=== PATIENT | male | born 1950 | race Caucasian/White ===

== ENCOUNTER 2019-12-19 13:54 | Outpatient (REF) | payer OTHER, SELFPAY ==
[2019-12-19 14:24] LABS: Microalbum/Creatinine Ratio Ur 27.5 ug/mg cr
== END 2019-12-19 13:55 | disposition home or self-care (01) ==
LOC: HO.LNP 13:54
PROVIDERS: Visit Provider Hospitalist
DX: I10 Essential (primary) hypertension (principal)
CPT/HCPCS: 82043

== ENCOUNTER 2019-12-31 17:57 | Outpatient (REF) | payer OTHER, SELFPAY | END 2019-12-31 17:58 | disposition home or self-care (01) | LOC: HO.LAB 17:57 | PROVIDERS: Visit Provider Internal Medicine | DX: Z20.828 Contact with and (suspected) exposure to other viral communicable diseases (principal) | CPT/HCPCS: C9803; U0003 ==

== ENCOUNTER 2020-04-10 10:12 | Outpatient (REF) | payer OTHER, SELFPAY ==
[2020-04-10 14:29] LABS: Anion Gap 11 (12-20); Blood Urea Nitrogen 8 mg/dL (9-16); Calcium 8.9 mg/dL (8.4-10.2); Carbon Dioxide 27 mmol/L (22-29); Chloride 103 mmol/L (96-108); Estimated Glomerular Filt Rate > 60; Glucose Fasting 248 mg/dL (60-99); Magnesium 1.9 mg/dL (1.6-2.6); Phosphorus 3.1 mg/dL (2.7-4.5); Sodium 137 mmol/L (135-145)
[2020-04-10 14:50] LABS: TSH reflex Free T4 1.52 uIU/mL (0.32-4.0)
== END 2020-04-10 10:13 | disposition home or self-care (01) ==
LOC: HO.WFDLDS 10:12
PROVIDERS: Visit Provider Hospitalist
DX: Z00.00 Encounter for general adult medical examination without abnormal findings (principal); K44.9 Diaphragmatic hernia without obstruction or gangrene
CPT/HCPCS: 36415; 80048; 83735; 84100; 84443

== ENCOUNTER 2020-04-10 13:10 | Outpatient (REF) | payer OTHER, SELFPAY | END 2020-04-10 13:11 | disposition home or self-care (01) | LOC: HO.LAB 13:10 | PROVIDERS: PCP Hospitalist; Visit Provider Internal Medicine | DX: Z20.822 Contact with and (suspected) exposure to COVID-19 (principal) | CPT/HCPCS: 36415; C9803; U0003; U0005 ==

== ENCOUNTER 2020-04-30 11:06 | Outpatient (REF) | payer OTHER, SELFPAY | END 2020-04-30 11:07 | disposition home or self-care (01) | LOC: HO.LAB 11:06 | PROVIDERS: Visit Provider Internal Medicine | DX: Z20.822 Contact with and (suspected) exposure to COVID-19 (principal) | CPT/HCPCS: 36415; C9803; U0003; U0005 ==

== ENCOUNTER 2020-06-09 13:08 | Outpatient (REF) | payer OTHER, SELFPAY | END 2020-06-09 13:09 | disposition home or self-care (01) | LOC: HO.LAB 13:08 | PROVIDERS: Visit Provider Internal Medicine | DX: Z20.822 Contact with and (suspected) exposure to COVID-19 (principal) | CPT/HCPCS: C9803; U0003; U0005 ==

== ENCOUNTER 2021-02-10 10:30 | Outpatient (REF) | payer OTHER, SELFPAY | END 2021-02-10 10:31 | disposition home or self-care (01) | LOC: HO.LAB 10:30 | PROVIDERS: Visit Provider Internal Medicine | DX: Z20.822 Contact with and (suspected) exposure to COVID-19 (principal) | CPT/HCPCS: C9803; U0003; U0005 ==

== ENCOUNTER 2021-05-29 10:46 | Outpatient (REF) | payer OTHER, SELFPAY ==
[2021-05-29 11:20] LABS: COVID-19 Test Negative (Negative); IDNOW Serial# 08D9AD1C
== END 2021-05-29 10:47 | disposition home or self-care (01) ==
LOC: HO.LAB 10:46
PROVIDERS: Visit Provider Internal Medicine
DX: Z20.822 Contact with and (suspected) exposure to COVID-19 (principal)
CPT/HCPCS: 87635; C9803

== ENCOUNTER 2024-10-04 14:46 | Outpatient (AMB) | payer OTHER, SELFPAY ==
--- NOTE | 2024-10-04 14:50 | A.OFFVIS_ITS ---
Intake Visit Reasons: 2 Months/ Migrane PN Breastfeeding Program Coordinator Required: Yes Breastfeeding Program Coordinator Name: #[id number] Allergies No Known Allergies Allergy (Verified 10/04/24 14:54) Medication List - Last Reconciled 10/04/24 by Heena Souza CNP buspirone 10 mg PO BID gklltqqzyj-wczevypazjngi-ylbv 50-325-40 mg 1 - 2 tabs PO DAILY PRN cetirizine 10 mg PO DAILY clonazepam 0.5 mg PO DAILY PRN dulaglutide mg subcut empagliflozin (Jardiance) 25 mg PO DAILY esomeprazole magnesium 40 mg PO DAILY insulin aspart U-100 15 units subcut TID insulin degludec 50 units subcut BEDTIME lisinopril 2.5 mg PO DAILY melatonin 9 mg PO BEDTIME meloxicam 15 mg PO DAILY PRN 3 months mirtazapine 30 mg PO BEDTIME prazosin 1 mg PO BEDTIME rosuvastatin 20 mg PO DAILY sertraline 50 mg PO DAILY HPI Comments Details: 73-year-old man with remote h/o heavy alcohol use, underlying diagnosis of bipolar disorder, CAD s/p CABG, and diabetes who was here with complaints of headache and unsteadiness. Evaluation revealed cerebellar atrophy and moderately severe axonal SM PN. He was doing okay. Headaches were infrequent, happening about once a month. Butalbital as needed helped. He had some burning-type pain in legs, mostly at night. Sleep was okay with medications. Walking with cane, no further falls. He had arthritis pains in shoulders and hands, and was using lidocaine patches OTC which helped. He was asking if these could be prescribed due to cost. His blood sugar in the office was 169. [facility] Medical History (Updated 10/04/24 @ 15:06 by Heena Souza CNP) Multifactorial gait disorder Peripheral neuropathy Migraine Hypertension Surgical History History of circumcision History of vasectomy Family History Father No problems noted. Mother Diabetes Hypertension CVD (cardiovascular disease) Brother Diabetes Maternal Aunt Stomach cancer Review of Systems Const Denies chills, Denies daytime sleepiness, Denies difficulty sleeping, Denies fatigue, Denies fever(s), Denies frequent falls, Reports headache(s), Denies increased appetite, Denies poor appetite, Denies snoring, Denies weakness, Denies weight gain and Denies weight loss Eyes Denies loss of vision ENT Denies vertigo, Denies dizziness and Reports headache(s) Card Denies chest pain at rest, Denies chest pain with activity, Denies syncope, Denies leg edema and Denies palpitations Resp Denies snoring GI Denies constipation, Denies heartburn, Denies diarrhea and Denies nausea Denies urinary frequency, Denies urinary incontinence and Denies urinary urgency Musc Denies abnormal gait, Reports numbness and Reports tingling Skin/Breast Denies dry skin and Denies rash Neuro Denies abnormal gait, Denies vertigo, Denies dizziness, Denies syncope, Denies frequent falls, Reports headache(s), Denies lack of coordination, Denies loss of vision, Denies memory loss, Reports numbness, Denies restless legs, Denies seizure-like activity, Reports tingling, Denies paresthesias, Denies tremor(s) and Denies weakness Psych Denies anxiety, Denies depression, Denies auditory hallucinations, Denies memory loss, Denies visual hallucinations and Denies suicidal ideation Endo Denies fatigue and Denies palpitations Physical Exam Const Other: General Appearance:? normal, in no acute distress. Skin:? no rashes, no significant birthmarks. Heart:? S1, S2 normal, no murmurs. Lungs:? clear anteriorly and posteriorly. Extremities:? no edema. Psych:? alert, oriented, cognitive function intact, cooperative with exam. Neuro Other: Mental Status:?Normal attention, orientation, memory and affect.? Cranial Nerves:?Pupils are equal, round and reactive to light. External occular muscles are intact. Visual ace are full. Face is symmetrical. Facial sensations are normal. Tongue is midline. Palate elevates symmetrically. Shoulder shrugging is normal. Hearing to bedside conversation is normal. Motor Examination: DTRs 2-3 with flexor plantars. Sensory Exam:?....? Coordination:?No ataxia,?no titubation.? Gait Exam: With cane. Cerebellar Signs:?Ytgell-yd-afvs with mild b/l tremor. Extrapyramidal System:?No tremor, rigidity with normal facial expressions.? Pronator Drift:?Not present.? Involuntary Movements:?No tremors seen.? Speech:?Normal.? Results Reviewed Results Reviewed: NCV/EMG (in office) Moderately severe motor more than sensory peripheral neuropathy with features of demyelination and axonal loss. 01/03/24. CT brain WO at [facility] in 2021: Mild cerebellar and cerebral atrophy Assessment & Plan Assessment & Plan (1) Migraine: Code(s): G43.909 - Migraine, unspecified, not intractable, without status migrainosus Category: Medical Qualifiers: Migraine type: unspecified Status migrainosus presence: without status migrainosus Intractability: not intractable Qualified Code(s): G43.909 - Migraine, unspecified, not intractable, without status migrainosus Plan: Continue vjbclmsehb-XECI-lxjs 50-325-40mg 1-2 tablets as needed for headache #10 for 30 days. (2) Peripheral neuropathy: Code(s): G62.9 - Polyneuropathy, unspecified Category: Medical Qualifiers: Peripheral neuropathy type: polyneuropathy, unspecified Qualified Code(s): G62.9 - Polyneuropathy, unspecified Plan: Start gabapentin 300mg 1 tablet at bedtime, use/side effects. (3) Multifactorial gait disorder: Code(s): R26.89 - Other abnormalities of gait and mobility Category: Medical Plan: Use cane at all times. (4) Osteoarthritis: Code(s): M19.90 - Unspecified osteoarthritis, unspecified site Category: Medical Qualifiers: Osteoarthritis location: multiple joints Osteoarthritis type: unspecified Qualified Code(s): M15.9 - Polyosteoarthritis, unspecified Plan: Script for lidocaine patches sent, will see if covered by insurance. Medications: New gabapentin 300 mg PO BEDTIME 30 days 30 caps 2RF lidocaine 4% 1 patch topical DAILY PRN 30 ea 2RF pain 30 days lidocaine 4% 1 patch topical DAILY 30 days PRN 30 ea 2RF pain crbcpzjxmz-eehhsxczngxlm-mrbs 50-325-40 mg 1 - 2 tabs PO DAILY PRN 10 tabs 2RF headache 30 days gabapentin 300 mg PO BEDTIME 30 caps 2RF 30 days Coding Level of Care Code Est Pt Level 4 (85833) Diagnoses Migraine without status migrainosus, not intractable, unspecified migraine type G43.909 Migraine type: unspecified Status migrainosus presence: without status migrainosus Intractability: not intractable Peripheral polyneuropathy G62.9 Peripheral neuropathy type: polyneuropathy, unspecified Multifactorial gait disorder R26.89 Osteoarthritis of multiple joints, unspecified osteoarthritis type M15.9 Osteoarthritis location: multiple joints Osteoarthritis type: unspecified
--- OUTSIDE RECORDS SUMMARY | 2024-10-04 15:25 | XMS_ITS | Clinical Summary ---
Author Organization [facility] Address [address] [place] [address] Care Team Providers Care Medical Coding Specialist Name Role Phone Lucho Eric MD Primary Care Provider [phone] Allergies No known active allergies Medications Medication Sig Dispensed Refills Start Date End Date Status aspirin EC 81 MG tablet Take 81 mg by mouth. 0 07/08/2016 Active atorvastatin (LIPITOR) tablet 40 mg Take 40 mg by mouth. 0 07/08/2016 Active citalopram (CELEXA) 20 MG tablet Take 20 mg by mouth. 0 07/08/2016 Active clonazePAM (KLONOPIN) 1 MG tablet Take 1 mg by mouth. 0 09/15/2015 Active insulin aspart (NovoLOG FLEXPEN) injection 100 units/mL Inject SQ w/ Meals TID 5-35 units up to 105 units daily 0 04/30/2016 Active Insulin Degludec 200 UNIT/ML SOPN Inject 60 Units under the skin. 0 04/30/2016 Active lamoTRIgine (LAMICTAL) 25 MG tablet Take 25 mg by mouth. 0 07/08/2016 Active meloxicam (MOBIC) 15 MG tablet Take 15 mg by mouth. 0 07/08/2016 Active omeprazole (PRILOSEC) 20 MG capsule Take 20 mg by mouth. 0 07/08/2016 Active sildenafil (VIAGRA) 100 MG tablet Take 100 mg by mouth. 0 07/08/2016 Active gabapentin (NEURONTIN) 300 MG capsule Take 300 mg by mouth 3 (three) times a day. 0 Active prazosin (MINIPRESS) 1 MG capsule Take 1 mg by mouth every night at bedtime. 0 Active rosuvastatin (CRESTOR) tablet 40 mg Take 40 mg by mouth daily. 0 Active esomeprazole (NexIUM) 40 MG capsule Take 40 mg by mouth 2 (two) times a day. 0 Active metFORMIN (GLUCOPHAGE) tablet 500 mg Take 1,000 mg by mouth 2 (two) times a day with meals. 0 Active cyanocobalamin (VITAMIN B12) 1000 MCG/ML injection Inject 1,000 mcg into the muscle every 30 (thirty) days. 0 Active empagliflozin (JARDIANCE) tablet 10 mg Take 10 mg by mouth daily. 0 Active dulaglutide (TRULICITY) 3 MG/0.5ML subcutaneous pen-injector Inject 3 mg under the skin every 7 days. 0 Active lisinopril (PRINIVIL,ZESTRIL) tablet 2.5 mg Take 2.5 mg by mouth daily. 0 Active Active Problems Problem Noted Date Diagnosed Date Unintentional weight loss 07/20/2021 Gastroparesis diabeticorum 07/07/2021 Diabetes mellitus type 2, wi th complication, on fpc insulin pump 12/11/2018 Anxiety 08/02/2017 Bipolar 1 disorder 08/02/2017 Multilevel degenerative disc disease 08/02/2017 Overview: MRI Lumbar and cervical spine 12/07/11 in [place] Diffuse Chronic DJD and early DDD changes HTN (hypertension) 06/29/2017 Hyperlipidemia 05/30/2014 Obstructive sleep apnea 05/30/2014 Overview: [facility] Polysomnogram: Date 09/06/2017; Wt 174# SE 63%; SM 67%; REM 14%; RDI 31 (AHI 31), REM (RDI 25 - AHI 25), Central apneas 2; Obstructive apneas 11; Mixed apneas 2; hypopneas 157; RERAs 0; average oxygen saturation 94% (lowest 86% - without saturations <88% for 5% or more of study); PLMs 57. - Obstructive Sleep Apnea - severe overall and moderate in REM; mostly hypopneas; without sleep related hypoventilation by 2018 polysomnogram. GERD (gastroesophageal reflux disease) Family History Medical History Relation Name Comments Diabetes Mother Heart disease Mother Stomach cancer Paternal Aunt Relation Name Status Comments Mother Paternal Aunt Social History Tobacco Use Types Packs/Day Years Used Date Smoking Tobacco: Never Smokeless Tobacco: Never Sex and Gender Information Value Date Recorded Sex Assigned at Not on file Gender Identity Not on file Sexual Orientation Not on file Job Start Date Occupation Industry Not on file Not on file Not on file Last Filed Vital Signs Vital Sign Reading Time Taken Comments Blood Pressure 156/78 07/07/2021 1:06 PM EDT Pulse 73 07/07/2021 1:06 PM EDT Temperature 36.4 C (97.5 F) 07/07/2021 1:06 PM EDT Respiratory Rate - - Oxygen Saturation 100% 07/07/2021 1:06 PM EDT Inhaled Oxygen Concentration - - Weight 69.4 kg (153 lb) 07/07/2021 1:06 PM EDT Height 165.1 cm (5' 5 ) 07/07/2021 1:06 PM EDT Body Mass Index 25.46 07/07/2021 1:06 PM EDT Plan of Treatment Health Maintenance Due Date Last Done Comments Hepatitis C Screening 1950 Depression Screening 1964 Preventative Health Evaluation 1970 DTap / Tdap / Td (1 - Tdap) 12/04/1971 Colon Cancer Screening (Colonoscopy) 1997 Shingrix-Zoster Vaccine (1 o f 2) 2002 RSV Adult > 60+ Yrs or (1 - Risk 60-74 years 1-dose series) 2012 Fall Risk Assessment 2017 Pneumococcal Vaccine (2 of 2 - PPSV23 or PCV20) 04/02/2021 02/05/2021 COVID-19 Vaccine (2 - 2023-2 5 season) 2023 01/21/2021 Influenza Vaccine (#1) 2024 , 12/04/2014 Hepatitis B Vaccines Aged Out No long er eligible based on patient's age to complete this topic RSV Ped < 20 months Aged Out No longe r eligible based on patient's age to complete this topic Care Teams Medical Coding Specialist Relationship Specialty Start Date End Date Lucho Eric MD [address] [place] [id number] PCP - General Internal Medicine 06/23/21
--- OUTSIDE RECORDS SUMMARY | 2024-10-04 15:25 | XMS_ITS | Clinical Summary ---
Author Organization [facility] Address [address] [place] [address] Phone Care Team Providers Care Tracer Bullet Section Supervisor Name Role Phone Lucho Eric MD Primary Care Provider [phone] Allergies No known active allergies Medications blood sugar diagnostic (FreeStyle Lite Strips) test strip Use to check BS as needed when dexcom cgm not working. Daily 4 Active FREESTYLE LANCETS MISC USE TO CHECK BS As needed when dexcom cgm not working. Daily 4 Active mirtazapine (REMERON) 30 mg tablet Take 1 tablet (30 mg total) by mouth 1 (one) time each day. 3 Active melatonin 10 mg tablet at bedtime. 3 Active latanoprost (XALATAN) 0.005 % ophthalmic solution 3 Active clonazePAM (KlonoPIN) 1 mg tablet Take 0.5 Tablets by mouth as needed. 6 Active omeprazole (PriLOSEC) [address] capsuleIndicati ons:Esophagitis determined by endoscopy Take 1 capsule (20 mg total) by mouth 2 (two) times a day. Before meals. Do not crush or chew. 60 each 11 5 03/08/19 26 Active ondansetron (ZOFRAN) 4 mg tabletIndicatio ns:Gastroparesi s Take 1 tablet (4 mg total) by mouth every 8 (eight) hours if needed for nausea. 50 tablet 11 5 04/12/19 26 Active sertraline (ZOLOFT) 25 mg tablet 5 Active ferrous sulfate 325 mg (65 mg elemental iron) tablet Take 1 tablet (325 mg total) by mouth 1 (one) time each day. 90 each 5 10/30/19 25 Active cyanocobalamin (VITAMIN B-12) 1,000 mcg tablet Take 1 tablet (1,000 mcg total) by mouth 1 (one) time each day. 90 each 5 10/30/19 25 Active sertraline (ZOLOFT) 50 mg tablet Take 1 tablet (50 mg total) by mouth 1 (one) time each day. 5 Active insulin glargine (Lantus Solostar U-100 Insulin) 100 unit/mL (3 mL) injection pen Inject 20 Units into the skin at bedtime. Go up by 4 units every week ib BS above 150. Max dose 60 units 15 mL 5 5 Active empagliflozin (Jardiance) 25 mg tablet Take 1 tablet (25 mg total) by mouth 1 (one) time each day. 90 tablet 3 5 Active metFORMIN XR (GLUCOPHAGE-XR) 500 mg 24 hr tablet Take 2 tablets (1,000 mg total) by mouth 2 (two) times a day. 360 each 5 Active SITagliptin phosphate (Januvia) 100 mg tablet Take 1 tablet (100 mg total) by mouth 1 (one) time each day. 90 tablet 3 5 Active pen needle, diabetic 32 gauge x needle Use daily with insulin 100 each 11 5 Active ipratropium-alb uteroL (COMBIVENT RESPIMAT) 20-100 mcg/actuation inhaler Inhale 1 puff by mouth 4 (four) times a day. 3 each 3 5 08/10/19 26 Active FLUoxetine (PROzac) 10 mg capsule 4 09/27/19 25 Discontinu ed(Alterna te therapy) albuterol HFA (PROAIR HFA ; PROVENTIL HFA ; VENTOLIN HFA) 90 mcg/actuation inhaler Inhale 2 Puffs into the lungs every 6 hours as needed for Cough, Wheezing or Shortness of Breath. 4 09/27/19 25 Discontinu ed(Therapy completed) ipratropium-alb uteroL (Combivent Respimat) 20-100 mcg/actuation inhalerIndicati ons:Chronic obstructive pulmonary disease, unspecified COPD type (CMS/HCC V24, CMS/HCC V28) Inhale 1 puff by mouth 3 (three) times a day. 1 each 11 4 09/27/19 25 Discontinu ed(Duplica te order) atorvastatin (LIPITOR) 80 mg tablet AMADO 1 TABLETA POR LA BOCA CADA CASSIE 90 tablet 3 5 09/27/19 25 Discontinu ed(Therapy completed) Active Problems Problem Noted Date Diagnosed Date Odynophagia 01/05/2024 Liver fibrosis 10/12/2023 Shortness of breath 08/23/2023 Overview (01/05/2024): Last Assessment & Plan: Continue to report mild shortness of breath. Echocardiogram is unchanged. He does not have a sign of heart failure. There is no hemodynamically significant valvular disease. Will defer to primary care physician team for further workup. Coronary artery disease 12/29/2022 Overview (01/05/2024): 12/2022: CABG x4 JANE to LAD, Ramus intermedius (from L radial), OM2 and distal RCA (from L saphenonus) Last Assessment & Plan: Status post four-vessel CABG. Will continue current regimen. Abnormal echocardiogram 11/12/2022 Overview (01/05/2024): Last Assessment & Plan: He has a quit a heavy calcified spot around the tricuspid valve and the similar structure was seen in previous echo last year. I was able to review [facility] echo done in 2019 and there was similar but much less prominent structure around the tricuspid valve. This is a rare tricuspid valve or annulus does not usually get much of a calcification. This need to be further assessed. She had had a hiatal hernia repair surgically and I will review the endoscopy postsurgery. If transesophageal echocardiogram cannot be easily done, we probably should do the cardiac CTA for better evaluation after cardiac catheterization. Abnormal stress test 11/12/2022 Overview (01/05/2024): Last Assessment & Plan: Stress echo image was limited but does suggest possible hypokinesis of anteroseptum. He has been experiencing exertional chest pain symptoms. He has a multiple risk factors, especially significant calcification around multiple valvular area, diabetes, angina hyperlipidemia. I will schedule a cardiac catheterization for further evaluation of his coronary anatomy and possible intervention. We will start aspirin. I Explained to both the patient and his about the procedure, risk and benefit. Ascending aorta dilatation ([facility] V24) 023 Gastroparesis 08/06/2022 DM (diabetes mellitus), type 2 with renal complications ([facility]/HCC V24, [facility] V28) 12/21/2017 Esophagitis 10/03/2017 Microalbuminuria 08/18/2017 Anxiety 08/02/2017 Bipolar 1 disorder (CMS/HCC V24, CMS/HCC V28) Cervical radiculopathy 08/02/2017 Overview (01/05/2024): MRI 04/2015. Chronic pain syndrome 08/02/2017 Overview (01/05/2024): No relief from Pain Clinic. . ? Medical Marijuana beneficial Depression, major, recurrent , in partial remission ([facility] V24) 08/02/2017 ED (erectile dysfunction) 08/02/2017 Overview (01/05/2024): Sildenafil 100 mg Esophageal hernia 08/02/2017 Herniation of intervertebral disc between L5 and S1 08/02/2017 Overview (01/05/2024): Sacral radiculopathy Hyperlipidemia 08/02/2017 Overview (01/05/2024): Last Assessment & Plan: LDL is at target. Multilevel degenerative disc disease 08/02/2017 Overview (01/05/2024): MRI Lumbar and cervical spine 12/07/11 in [place] Diffuse Chronic DJD and early DDD changes Tubular adenoma of colon 08/02/2017 Overview (01/05/2024): Colonoscopy 03/22/17 GERD (gastroesophageal reflux disease) 8 HTN (hypertension) 06/29/2017 Type 2 diabetes mellitus wit h vascular disease ([facility] V24, [facility] V28) 06/29/2017 Major depression in remission ([facility] V24) 03/2017 Colon polyp 04/21/2017 Overview (01/05/2024): GI [facility] 03/22/17 EGD: Normal - with mild active inflammation without intestinal metaplasia. Colon, hepatic flexure with tubular adenoma. Adhesive capsulitis of left shoulder 04/30/2016 Overview (01/05/2024): [facility] ED 04/14/16 for L shoulder pain, xray negative. 04/22/16 Maritza PYLE, JESUS. Cortisone injection not given d/t uncontrolled BS. Advised f/u 1 week to see if BS more controlled then will give injection. Advised PT. Obstructive sleep apnea 05/30/2014 Overview (01/05/2024): [facility] Polysomnogram: Date 09/06/2017; Wt 174# SE [...] without sleep related hypoventilation by 2018 polysomnogram. Encounters Date Type Department Care Team Description 09/26/2024 9:45 AM EDT [facility] [address] [place] [phone] Nicole Bernabe PA Type 2 diabetes mellitus with stage 3 chronic kidney disease, unspecified whether fpc insulin use, unspecified whether stage 3a or 3b CKD ([facility] V24, [facility] V28) (Primary Dx); Secondary hypertension; Hyperlipidemia, unspecified hyperlipidemia type 08/28/2024 Telephone Internal Medicine - [facility] [address] [place] [address] Lucho Eric MD Forms/questionnaires ([facility] ) 08/23/2024 [facility] [address] [place] [address] Lucho Eric MD 08/14/2024 Telephone Internal Medicine - [address] [phone] Lucho Eric MD Forms/questionnaires ([facility] Plan [facility] services) 08/[facility] [address] [phone] Chey Azar [place] 08/09/2024 8:15 AM EDT [facility] [address] [phone] Padmini Jernigan MD Chronic obstructive pulmonary disease, unspecified COPD type ([facility] V24, [facility] V28) (Primary Dx); Mixed sleep apnea; TB lung, latent; Ex-smoker 08/08/2024 9:30 AM EDT - 08/08/2024 11:59 PM EDT Hospital Encounter [facility] - [place] [address] [place] [phone] Chronic obstructive pulmonary disease, unspecified COPD type ([facility] V24, [facility] V28) Discharge Disposition: Home or Self Care 07/23/2024 Telephone Internal Medicine - [facility] [address] [place] [address] Lucho Eric MD Faxed Order ([facility] ) 07/06/2024 10:00 AM EDT [facility] [address] [facility] [place] [phone] Denilson Partida NP Urinary tract infection with hematuria, site unspecified (Primary Dx) from Last 3 Months Immunizations Name Administration Dates Next Due Influenza trivalent, 0.5mL (Fluad) 65yo and olde r 10/26/2023,02/05/2021 Influenza, Unspecified 10/21/2022 Pfizer SARS-CoV-2 COVID-19, mRNA, LNP-S, preservative free 01/21/2021 Pneumococcal conjugate 13 va lent (Prevnar 13, PCV13) 2mo and older 02/05/2021 Pneumococcal conjugate 20 va lent (Prevnar 20, PCV 20) 2mo and older 10/26/2023 Surgical History Surgery Date Site/Laterality Comments COLONOSCOPY 03/22/2017 PROCEDURE: HISTORICAL COLONOSCOPY; COMMENT: tubular adenoma OTHER SURGICAL HISTORY PROCEDURE: [place] ANES VASECTOMY UNI/BI INCL OPEN URETHRAL PX OTHER SURGICAL HISTORY PROCEDURE: HISTORY OTHER; COMMENT: gastric surgery, CORONARY ARTERY BYPASS GRAFT HERNIA REPAIR Medical History Medical History Date Comments Adhesive capsulitis of left shoulder 08/02/2017 DX:Adhesive capsulitis of left shoulder Anxiety 08/02/2017 DX:Anxiety Bipolar 1 disorder ([facility] V24, [facility] V28) 08/02/2017 DX:Bipolar 1 disorder (HCC) Cervical radiculopathy 08/02/2017 DX:Cervic al radiculopathy; COMMENT: MRI 04/2015. Chronic pain syndrome 08/02/2017 DX:Chronic pain syndrome; COMMENT: No relief from Pain Clinic. . ? Medical Marijuana beneficial Colon polyp 04/21/2017 DX:Colon polyp Depression, major, recurrent , in partial remission (CMS/HCC V24) 08/02/2017 DX:Depression, major, recurrent, in partial remission (HCC) DM (diabetes mellitus), type 2 with renal complications (CMS/[facility] V24, [facility] V28) 12/21/2017 DX:DM (diabetes mellitus), t ype 2 with renal complications ([facility]) ED (erectile dysfunction) 08/02/2017 DX:ED (erectile dysfunction); COMMENT: Sildenafil 100 mg Esophageal hernia 08/02/2017 DX:Esophageal hernia Esophagitis 10/03/2017 DX:Esophagitis GERD (gastroesophageal reflux disease) 06/29/2017 DX:GERD (gastroesophageal reflux disease) Herniation of intervertebral disc between L5 and S1 08/02/2017 DX:Herniation of interverteb ral disc between L5 and S1; COMMENT: Sacral radiculopathy History of Helicobacter pylo ri infection 08/02/2017 DX:History of Helicobacter p ylori infection HTN (hypertension) 06/29/2017 DX:HTN (hyper tension) Hyperlipidemia 08/02/2017 DX:Hyperlipidemi a Major depression in remissio n ([facility] V24) 05/23/2017 DX:Major depression in remis alec ([facility]) Microalbuminuria 08/18/2017 DX:Microalbumin uria Multilevel degenerative disc disease 08/02/2017 DX:Multilevel degenerative disc disease Obstructive sleep apnea 06/29/2017 DX:Obstr uctive sleep apnea; COMMENT: [facility] Polysomnogram: Date 09/06/2017; Wt 174# SE [...] - severe overall and moderate in REM; mo* Radiculopathy, sacral 07/19/2017 DX:Radicul opathy, sacral Tubular adenoma of colon 08/02/2017 DX:Tubu lar adenoma of colon; COMMENT: Colonoscopy 03/22/17 Type 2 diabetes mellitus wit h vascular disease (CMS/HCC V24, CMS/HCC V28) 06/29/2017 DX:Type 2 diabetes mellitus with vascular disease (HCC) Ascending aorta dilatation ( CMS/HCC V24) 10/06/2022 DX:Ascending aorta dilatatio n (HCC) Liver fibrosis 10/12/2023 DX:Liver fibrosi s Family History Medical History Relation Name Comments No Known Problems Brother x3 Diabetes Mother No Known Problems Sister No Known Problems Son x2 Relation Name Status Comments Brother x3 Alive Father Mother Sister Alive Son x2 Alive Social History Tobacco Use Types Packs/Day Years Used Date Smoking Tobacco: Never Smokeless Tobacco: Never Tobacco Cessation:Counseling Given: Not Answered Alcohol Use Standard Drinks/Week Comments No 0 (1 standard drink = 0.6 oz pur e alcohol) Interpersonal Safety Answer Date Record ed Physical Abuse 03/07/2024 Verbal Abuse 03/07/2024 Sex and Gender Information Value Date Recorded Sex Assigned at Male 12/22/2023 9:43 AM EDT Legal Sex Male 3:01 AM EST Gender Identity Male 12/22/2023 9:43 AM EDT Sexual Orientation Straight 12/22/2023 9: 43 AM EDT Obstetrics History Last Filed Vital Signs Vital Sign Reading Time Taken Comments Blood Pressure 110/62 09/26/2024 9:49 AM EDT Pulse 68 09/26/2024 9:49 AM EDT Temperature 36.2 C (97.1 F) 09/26/2024 9:49 AM EDT Respiratory Rate 16 07/02/2024 6:51 PM EDT Oxygen Saturation 100% 08/09/2024 8:16 AM EDT Inhaled Oxygen Concentration - - Weight 68.9 kg (152 lb) 09/26/2024 9:49 AM EDT Height 165.1 cm (5' 5 ) 09/26/2024 9:49 AM EDT Body Mass Index 25.29 09/26/2024 9:49 AM EDT Plan of Treatment Upcoming Encounters Date Type Department Care Team (Late st Contact Info) Description 10/29/2024 9:00 AM EDT Office Visit [facility] Hematology Oncology [address] [place] [phone] Nancy Galindo PA [address] [place] [address] 11/15/2024 9:30 AM EDT Ancillary Procedure Pulmonol - [place] [address] [phone] 11/15/2024 10:15 AM EDT [facility] [address] [phone] Padmini Jernigan MD [address] [phone] 12/27/2024 10:45 AM EST Office Visit Endocrinology - [facility] [address] [place] [phone] Nicole Bernabe PA [address] [place] [address] Health Maintenance Due Date Last Done Comments Diabetes: Annual Foot Exam 1962 DTaP,Tdap,and Td Vaccines (1 - Tdap) 12/04/1971 Hepatitis A Vaccines (1 of 2 - Risk 2-dose series) 12/04/1971 Zoster Vaccines (1 of 2) 12/04/1971 Hepatitis B Vaccines (1 of 3 - Risk 3-dose series) 2012 RSV Immunization Adult Patients (1 - Risk 60-74 years 1-dose series) 2012 Social Influencers of Health Screening 01/30/2022 Medicare Annual Wellness Visit 10/13/2023 10/12/2022 COVID-19 Vaccine ( season) 2023 01/21/2021, 05/21/2020, 04/30/2020 Depression Screening 02/22/2024 Diabetes: Annual Retina Eye Exam 09/27/2024 09/28/2023 Influenza Vaccine (#1) 2024 , 11/03/2022, 10/21/2022, Additional history exists Diabetes: Blood Sugar Control Test (HGBA1C) 02/07/2025 08/08/2024, 04/09/2024, 11/24/2023, Additional history exists Falls Risk Assessment 03/07/2025 03/07/2024 Diabetes: Annual Urine Albumin-Creatinine Ratio (uACR) 04/09/2025 04/09/2024, 05/19/2023 Diabetes: Annual GFR (Glomerular Filtration Rate) 07/02/2025 07/02/2024, 04/27/2024, 04/09/2024, Additional history exists Hypertension/CHF/CAD Annual BMP Blood Test 07/02/2025 07/02/2024, 04/27/2024, 04/09/2024, Additional history exists Colorectal Cancer Screening: Colonoscopy 03/07/2027 03/07/2024, 03/22/2017 Cholesterol Screening (Lipid Panel) 04/09/2029 04/09/2024, 07/14/2023, 07/14/2023, Additional history exists Hepatitis C Screening Completed 05/27/2020 Pneumococcal Vaccine: 50+ Years Completed 10/26/2023, 02/05/2021 HIB Vaccines Aged Out No longer eligi ble based on patient's age to complete this topic HPV Vaccines Aged Out No longer eligi ble based on patient's age to complete this topic IPV Vaccines Aged Out No longer eligi ble based on patient's age to complete this topic MMR Vaccines Aged Out No longer eligi ble based on patient's age to complete this topic Meningococcal ACWY Vaccine Aged Out N o longer eligible based on patient's age to complete this topic Meningococcal B Vaccine Aged Out No l onger eligible based on patient's age to complete this topic RSV Immunization Patients Under 20 months Aged Out No longer eligible based on patient's age to complete this topic Varicella Vaccines Aged Out No longer eligible based on patient's age to complete this topic Procedures Procedure Name Priority Date/Time Associated Diagnosis Comments POC GLUCOSE Routine 09/26/2024 9:45 AM EDT Type 2 diabetes mellitus with stage 3 chronic kidney disease, unspecified whether fpc insulin use, unspecified whether stage 3a or 3b CKD ([facility] V24, [facility] V28) POLYSOMNOGRAPHY Routine 08/09/2024 4:19 PM EDT Mixed sleep apnea HEMOGLOBIN A1C Routine 08/08/2024 10:12 AM EDT Type 2 diabetes mellitus with stage 3 chronic kidney disease, unspecified whether terminal block assembler insulin use, unspecified whether stage 3a or 3b CKD ([facility] V24, [facility] V28) URINALYSIS WITH REFLEX MICROSCOPIC AND CULTURE Routine 08/08/2024 10:10 AM EDT Urinary tract infection with hematuria, site unspecified XR CHEST 2 VIEWS Routine 08/08/2024 9:42 AM EDT Chronic obstructive pulmonary disease, unspecified COPD type ([facility] V24, [facility] V28) KHALIL URINE CULTURE TUBE Routine 07/20/19 25 1:43 PM EDT Urinary tract infection with hematuria, site unspecified URINALYSIS WITH REFLEX MICROSCOPIC AND CULTURE Routine 07/19/2024 1:43 PM EDT Urinary tract infection with hematuria, site unspecified CBC WITH AUTO DIFFERENTIAL Routine 07/19/2024 10:55 AM EDT Urinary tract infection with hematuria, site unspecified CBC AND DIFFERENTIAL Routine 07/19/2024 10:55 AM EDT Urinary tract infection with hematuria, site unspecified POLYSOMNOGRAPHY Routine 07/04/2024 11:20 AM EDT Mixed sleep apnea COMPREHENSIVE METABOLIC PANEL STAT 07/02/2024 2:17 PM EDT MICROALBUMIN CREATININE URINE RATIO Routine 04/09/2024 11:32 AM EST Type 2 diabetes mellitus with vascular disease ([facility]/HCC V24, [facility] V28) LIPID PANEL WITH REFLEX TO DIRECT LDL Routine 04/09/2024 11:32 AM EST Type 2 diabetes mellitus with vascular disease (CMS/[facility] V24, CMS/[facility] V28) COLONOSCOPY Routine 03/07/2024 9:30 AM EST History of colon polyps DIABETES EYE EXAM Routine 09/28/2023 HEPATITIS C SCREENING Routine 05/27/2020 from Last 3 Months or Most Recently Relevant to Health Maintenance Results * POC glucose manually resulted (09/26/2024 9:45 AM EDT) Glucose POC 169 mg/dL Blood Capillary blood specimen / Unknown 09/26/2024 9:45 AM EDT us Nicole JACKMAN POINT OF CARE TEST ENTER/ED IT ORDERABLES Edited Result - Final * Polysomnography (08/09/2024 4:19 PM EDT) us Padmini Jernigan MD [facility] ORDERABLES Final Re sult * (ABNORMAL) Hemoglobin A1c (08/08/2024 10:12 AM EDT) [facility] Hemoglobin A1C 8.4(H) <6.5 % LAB CHEMISTRY METHOD 08/08/2024 1:40 PM EDT [facility] Mean Bld Glu Estim. 194 mg/dL LAB CHEMISTRY METHOD 08/08/2024 1:40 PM EDT [facility] Blood Venous blood specimen / Unknown Venipuncture / Unknown 08/08/2024 10:12 AM EDT 08/08/2024 10:12 AM EDT us Nicole JACKMAN LAB BLOOD ORDERABLES Final Result [facility] [address] [place] [address], [place] [phone] * (ABNORMAL) Urinalysis with reflex microscopic and culture (08/08/2024 10:10 AM EDT) [facility] Specific [place] Urine 1.028 1.003 - 1.030 LAB URINALYSIS - AUTOMATED METHOD 08/08/2024 12:32 PM T [facility] pH, Urine 5.0 5.0 - 8.0 pH LAB URINALYSIS - AUTOMATED METHOD 08/08/2024 12:32 PM T [facility] Leukocytes, Urine Negative Negative LAB URINALYSIS - AUTOMATED METHOD 08/08/2024 12:32 PM T [facility] Nitrite, Urine Negative Negative LAB URINALYSIS - AUTOMATED METHOD 08/08/2024 12:32 PM T [facility] Protein, Urine Negative <=Trace mg/dL LAB URINALYSIS - AUTOMATED METHOD 08/08/2024 12:32 PM T [facility] Glucose, Urine >=1000(A) Negative mg/dL LAB URINALYSIS - AUTOMATED METHOD 08/08/2024 12:32 PM EDT [facility] Ketones, Urine Negative Negative mg/dL LAB URINALYSIS - AUTOMATED METHOD 08/08/2024 12:32 PM EDT [facility] Urobilinogen , Urine 0.2 0.2 - 1.0 mg/dL LAB URINALYSIS - AUTOMATED METHOD 08/08/2024 12:32 PM EDT [facility] Bilirubin, Urine Negative Negative LAB URINALYSIS - AUTOMATED METHOD 08/08/2024 12:32 PM EDT [facility] Blood, Urine Negative Negative LAB URINALYSIS - AUTOMATED METHOD 08/08/2024 12:32 PM EDT [facility] Urine Urine specimen obtained by clean catch procedure / Unknown Non-blood Collection / Unknown 08/08/2024 10:10 AM EDT 08/08/2024 10:10 AM EDT us Denilson Partida WATER USE INSPECTOR LAB URINE ORDERABLES Final Res ult [facility] [address] [place] [address], * XR Chest 2 Views (08/08/2024 9:42 AM EDT) Anatomical Region Laterality Modality Body Radiographic Hiwot ging 08/08/2024 1:43 PM EDT Impressions 08/08/2024 1:46 PM EDT No acute cardiopulmonary process. -------- FINAL REPORT -------- Dictated By: Ama Guerra Dictated Date: 08/08/2024 13:43 ET Assigned Physician: Ama Guerra Reviewed and Electronically Signed By: Ama Guerra Signed Date: 08/08/2024 13:46 ET Workstation ID: [id number] Transcribed By: Self Edit Transcribed Date: 08/08/2024 13:43 ET Narrative 08/08/2024 1:46 PM EDT HISTORY: dyspnea TECHNIQUE: PA and lateral radiographs of the chest COMPARISON: Chest radiograph from 10/06/2022 FINDINGS: There is a normal cardiomediastinal silhouette. The lungs are clear. Mild degenerative changes of the thoracic spine. Procedure Note Ama Guerra MD - 08/08/2024 HISTORY: dyspnea TECHNIQUE: PA and lateral radiographs of the chest COMPARISON: Chest radiograph from 10/06/2022 FINDINGS: There is a normal cardiomediastinal silhouette. The lungs are clear. Milddegenerative changes of the thoracic spine. IMPRESSION: No acute cardiopulmonary process. -------- FINAL REPORT -------- Dictated By: Ama Guerra Dictated Date: 08/08/2024 13:43 ET Assigned Physician: Ama Guerra Reviewed and Electronically Signed By: Ama Guerra Signed Date: 08/08/2024 13:46 ET Workstation ID: [id number] Transcribed By: Self Edit Transcribed Date: 08/08/2024 13:43 ET us Padmini Jernigan MD IMG XR PROCEDURES Final Result * Khalil urine culture tube (07/19/2024 1:43 PM EDT) Pathologist [facility] Extra Tube Hold for add-ons. 07/19/2024 3:01 PM EDT [facility] Comment:Auto resulted. Urine Urine specimen obtained by clean catch procedure / Unknown Non-blood Collection / Unknown 07/19/2024 1:43 PM EDT 07/19/2024 1:43 PM EDT us Denilson Partida NP LAB URINE ORDERABLES Final Res ult [facility] [address] [place] [address], [place] [phone] * (ABNORMAL) CBC auto differential (07/19/2024 10:55 AM EDT) Pathologist [facility] WBC 7.6 4.8 - 10.8 K/mcL LAB HEMETOLOGY METHOD 07/19/2024 1:21 PM [facility] RBC 4.30(L) 4.50 - 5.50 M/mcL LAB HEMETOLOGY METHOD 07/19/2024 1:21 PM [facility] Hemoglobin 13.6 13.5 - 17.5 g/dL LAB HEMETOLOGY METHOD 07/19/2024 1:21 PM [facility] Hematocrit 42.2 42.0 - 54.0 % LAB HEMETOLOGY METHOD 07/19/2024 1:21 PM [facility] MCV 98.6(H) 79.0 - 98.0 FL LAB HEMETOLOGY METHOD 07/19/2024 1:21 PM [facility] MCH 31.8 27.0 - 32.0 pcg LAB HEMETOLOGY METHOD 07/19/2024 1:21 PM [facility] MCHC 32.2 32.0 - 37.0 g/dL LAB HEMETOLOGY METHOD 07/19/2024 1:21 PM [facility] RDW 13.7 11.0 - 15.0 % LAB HEMETOLOGY METHOD 07/19/2024 1:21 PM [facility] Platelets 243 130 - 400 K/mcL LAB HEMETOLOGY METHOD 07/19/2024 1:21 PM [facility] MPV 11.1(H) 7.0 - 11.0 FL LAB HEMETOLOGY METHOD 07/19/2024 1:21 PM [facility] NRBC 0.0 <1.0 % LAB HEMETOLOGY METHOD 07/19/2024 1:21 PM [facility] NRBC Absolute 0.00 <0.10 K/mcL LAB HEMETOLOGY METHOD 07/19/2024 1:21 PM [facility] Neutrophils Relative 69.6 % LAB HEMETOLOGY METHOD 07/19/2024 1:21 PM [facility] Lymphocytes Relative 20.2 % LAB HEMETOLOGY METHOD 07/19/2024 1:21 PM [facility] Monocytes Relative 7.3 % LAB HEMETOLOGY METHOD 07/19/2024 1:21 PM [facility] Eosinophils Relative 1.6 % LAB HEMETOLOGY METHOD 07/19/2024 1:21 PM [facility] Basophils Relative 0.8 % LAB HEMETOLOGY METHOD 07/19/2024 1:21 PM [facility] Immature Granulocytes Relative 0.5 % LAB HEMETOLOGY METHOD 07/19/2024 1:21 PM [facility] Neutrophils Absolute 5.32 1.50 - 7.00 K/mcL LAB HEMETOLOGY METHOD 07/19/2024 1:21 PM [facility] Lymphocytes Absolute 1.54 1.00 - 5.00 K/mcL LAB HEMETOLOGY METHOD 07/19/2024 1:21 PM [facility] Monocytes Absolute 0.56 0.20 - 1.00 K/mcL LAB HEMETOLOGY METHOD 07/19/2024 1:21 PM [facility] Eosinophils Absolute 0.12 0.00 - 0.50 K/mcL LAB HEMETOLOGY METHOD 07/19/2024 1:21 PM [facility] Basophils Absolute 0.06 0.00 - 0.20 K/mcL LAB HEMETOLOGY METHOD 07/19/2024 1:21 PM [facility] Immature Granulocytes Absolute 0.04(H) 0.00 - 0.03 K/mcL LAB HEMETOLOGY METHOD 07/19/2024 1:21 PM [facility] Blood Venous blood specimen / Unknown Venipuncture / Unknown 07/19/2024 10:55 AM EDT 07/19/2024 10:55 AM EDT us Denilson Partida NP LAB BLOOD ORDERABLES Final Res ult [facility] [address] [place] [address], [place] [phone] * Polysomnography (07/04/2024 11:20 AM EDT) us Padmini Jernigan MD [facility] ORDERABLES Final Re sult * (ABNORMAL) Comprehensive metabolic panel (07/02/2024 2:17 PM EDT) Sodium 137 133 - 145 mmol/L LAB CHEMISTRY METHOD 07/02/2024 3:08 PM [facility] Potassium 4.5 3.5 - 5.5 mmol/L LAB CHEMISTRY METHOD 07/02/2024 3:08 PM [facility] Chloride 107 96 - 110 mmol/L LAB CHEMISTRY METHOD 07/02/2024 3:08 PM [facility] CO2 20(L) 21 - 32 mmol/L LAB CHEMISTRY METHOD 07/02/2024 3:08 PM [facility] Anion Gap 10 3 - 11 LAB CHEMISTRY METHOD 07/02/2024 3:08 PM [facility] Glucose 297(H) 70 - 100 mg/dL LAB CHEMISTRY METHOD 07/02/2024 3:08 PM [facility] BUN 16 5 - 25 mg/dL LAB CHEMISTRY METHOD 07/02/2024 3:08 PM [facility] Creatinine 1.19 0.70 - 1.30 mg/dL LAB CHEMISTRY METHOD 07/02/2024 3:08 PM [facility] eGFR 65 >=60 mL/min/1. 73m2 LAB CHEMISTRY METHOD 07/02/2024 3:08 PM EDT [facility] Comment:Calculation based on the Chronic Kidney Disease Epidemiology Collaboration (CKD-EPI) equation refit without adjustment for race. BUN/Creatinine Ratio 13.4 LAB CHEMISTRY METHOD 07/02/2024 3:08 PM [facility] Calcium 8.9 8.5 - 10.5 mg/dL LAB CHEMISTRY METHOD 07/02/2024 3:08 PM [facility] AST (SGOT) 16 10 - 42 unit/L LAB CHEMISTRY METHOD 07/02/2024 3:08 PM [facility] ALT (SGPT) 19 10 - 60 unit/L LAB CHEMISTRY METHOD 07/02/2024 3:08 PM [facility] Alkaline Phosphatase 102 42 - 121 unit/L LAB CHEMISTRY METHOD 07/02/2024 3:08 PM [facility] Total Protein 7.2 6.0 - 8.0 g/dL LAB CHEMISTRY METHOD 07/02/2024 3:08 PM [facility] Albumin 3.9 3.2 - 5.0 g/dL LAB CHEMISTRY METHOD 07/02/2024 3:08 PM [facility] Total Bilirubin 0.5 0.0 - 1.4 mg/dL LAB CHEMISTRY METHOD 07/02/2024 3:08 PM [facility] Blood Venous blood specimen / Unknown Venipuncture / Unknown 07/02/2024 2:17 PM EDT 07/02/2024 2:30 PM EDT us Aryan Pérez MD LAB BLOOD ORDERABLES Final Resu lt [facility] [address] [place] [address], * (ABNORMAL) Lipid panel with reflex to direct LDL (04/09/2024 11:32 AM EST) Cholesterol 108 0 - 200 mg/dL LAB CHEMISTRY METHOD 04/09/2024 2:26 PM EST [facility] Triglycerides 170(H) 0 - 150 mg/dL LAB CHEMISTRY METHOD 04/09/2024 2:26 PM [facility] HDL 52 >=40 mg/dL LAB CHEMISTRY METHOD 04/09/2024 2:26 PM [facility] LDL Calculated 22 0 - 100 mg/dL LAB CHEMISTRY METHOD 04/09/2024 2:26 PM EST [facility] VLDL Cholesterol Andrae 34 mg/dL LAB CHEMISTRY METHOD 04/09/2024 2:26 PM [facility] Non HDL Chol. (LDL+VLDL) 56 <145 mg/dL LAB CHEMISTRY METHOD 04/09/2024 2:26 PM [facility] Chol/HDL Ratio 2.1 0.0 - 4.4 LAB CHEMISTRY METHOD 04/09/2024 2:26 PM [facility] Blood Venous blood specimen / Unknown Venipuncture / Unknown 04/09/2024 11:32 AM EST 04/09/2024 11:32 AM EST us Nicole JACMKAN LAB BLOOD ORDERABLES Final Result [facility] [address] [place] [address], * (ABNORMAL) Microalbumin creatinine urine ratio (04/09/2024 11:32 AM EST) Creatinine, Urine 58.0 mg/dL LAB CHEMISTRY METHOD 04/09/2024 3:08 PM [facility] Microalb, Ur 24.4 0.0 - 29.0 mg/L LAB CHEMISTRY METHOD 04/09/2024 3:08 PM [facility] Microalb/Creat Ratio 42(H) <30 mg/g creat LAB CHEMISTRY METHOD 04/09/2024 3:08 PM [facility] Urine Urine specimen from urethra / Unknown Non-blood Collection / Unknown 04/09/2024 11:32 AM EST 04/09/2024 11:32 AM EST us Nicole JACKMAN LAB URINE ORDERABLES Final Result [facility] [address] [place] [address], * COLONOSCOPY Anesthesia - MAC; [facility] END[facility]COPY (03/07/2024 9:30 AM EST) Anatomical Region Laterality Modality Other 03/07/2024 9:09 AM EST Impressions 03/07/2024 9:23 AM EST - Diverticulosis in the sigmoid colon and in the ascending colon. - Two 6 to 7 mm polyps at the splenic flexure, removed with a cold snare. Complete resection. Polyp tissue not retrieved. - The examination was otherwise normal on direct and retroflexion views. - The entire examined colon is normal. Biopsied. Recommendation: - Await pathology results. - Repeat colonoscopy in 3 years for surveillance. Narrative 03/07/2024 9:23 AM EST [facility] Patient Name: Ginger Flynn Procedure Date: 03/07/2024 9:09 AM Date of : 1950 Age: 73 Room: ROOM 14 Gender: Male Note Status: Finalized Attending MD: Collin Balderrama MD, Procedure Date No Time: 03/07/2024 Procedure: Colonoscopy Indications: Chronic diarrhea Providers: Collin Balderrama MD Referring MD: Collin Balderrama MD Medicines: Propofol per Anesthesia Complications: No immediate complications. Estimated Blood Loss: Estimated blood loss: none. Procedure: Pre-Anesthesia Assessment: - ASA Grade Assessment: III - A patient with severe systemic disease. After I obtained informed consent, the scope was passed under direct vision. Throughout the procedure, the patient's blood pressure, pulse, and oxygen saturations were monitored continuously. The Colonoscope was introduced through the anus and advanced to the cecum, identified by appendiceal orifice and ileocecal valve. The colonoscopy was performed without difficulty. The patient tolerated the procedure well. The quality of the bowel preparation was compromised but just adequate. Findings: The perianal and digital rectal examinations were normal. Multiple diverticula were found in the sigmoid colon and ascending colon. Two sessile polyps were found in the splenic flexure. The polyps were 6 to 7 mm in size. These polyps were removed with a cold snare. Resection was complete, but the polyp tissue was not retrieved. The scope was clogged with retained stool. The exam was otherwise without abnormality on direct and retroflexion views. The colon (entire examined portion) appeared normal. Biopsies for histology were taken with a cold forceps from the right colon, left colon and transverse colon for evaluation of microscopic colitis. Procedure Code(s): --- Professional --- 02934, Colonoscopy, flexible; with removal of tumor(s), polyp(s), or other lesion(s) by snare technique 49137, 59, Colonoscopy, flexible; with biopsy, single or multiple Diagnosis Code(s): --- Professional --- D12.3, Benign neoplasm of transverse colon (hepatic flexure or splenic flexure) K57.30, Diverticulosis of large intestine without perforation or abscess without bleeding K52.9, Noninfective gastroenteritis and colitis, unspecified CPT copyright 2020 [employer]. All rights reserved. The codes documented in this report are preliminary and upon nautical instrument mechanic review may be revised to meet current compliance requirements. Collin Balderrama MD 03/07/2024 9:22:59 AM This report has been signed electronically.Collin Balderrama MD Number of Addenda: 0 Note Initiated On: 03/07/2024 9:09 AM Scope In: Scope Out: Endoscopy Department at [facility] - [address] [place] [id number] Procedure Note Collin Balderrama MD - 03/07/2024 [facility] GI Patient Name: Ginger Flynn Procedure Date: 03/07/2024 9:09 AM Date of : 1950 Age: 73 Room: ROOM 14 Gender: Male Note Status: Finalized Attending MD: Collin Balderrama MD, Procedure Date No Time: 03/07/2024 Procedure: Colonoscopy Indications: Chronic diarrhea Providers: Collin Balderrama MD Referring MD: Collin Balderrama MD Medicines: Propofol per Anesthesia Complications: No immediate complications. Estimated Blood Loss: Estimated blood loss: none. Procedure: Pre-Anesthesia Assessment: - ASA Grade Assessment: III - A patient with severe systemic disease. After I obtained informed consent, the scope was passed under direct vision. Throughout theprocedure, the patient's blood pressure, pulse, and oxygen saturations were monitored continuously. The Colonoscope was introduced through the anus and advanced to the cecum, identified by appendiceal orifice and ileocecal valve. The colonoscopy was performed without difficulty. The patient tolerated the procedure well. The quality of the bowel preparation was compromised but just adequate. Findings: The perianal and digital rectal examinations were normal. Multiple diverticula were found in the sigmoidcolon and ascending colon. Two sessile polyps were found in the splenicflexure. The polyps were 6 to 7 mm in size. These polypswere removed with a cold snare. Resection was complete,but the polyp tissue was not retrieved. The scope was clogged with retained stool. The exam was otherwise without abnormality ondirect and retroflexion views. The colon (entire examined portion) appearednormal. Biopsies for histology were taken with a coldforceps from the right colon, left colon and transversecolon for evaluation of microscopic colitis. Procedure Code(s): --- Professional --- 29340, Colonoscopy, flexible; with removal of tumor(s), polyp(s), or other lesion(s) by snare technique 25948, 59, Colonoscopy, flexible; with biopsy,single or multiple Diagnosis Code(s): --- Professional --- D12.3, Benign neoplasm of transverse colon (hepatic flexure or splenic flexure) K57.30, Diverticulosis of large intestine without perforation or abscess without bleeding K52.9, Noninfective gastroenteritis and colitis, unspecified CPT copyright 2020 [employer]. All rights reserved. The codes documented in this report are preliminary and upon nautical instrument mechanic reviewmay be revised to meet current compliance requirements. Collin Balderrama MD 03/07/2024 9:22:59 AM This report has been signed electronically.Collin Balderrama MD Number of Addenda: 0 Note Initiated On: 03/07/2024 9:09 AM Scope In: Scope Out: Endoscopy Department at [facility] - [address] [place] [phone] IMPRESSION: - Diverticulosis in the sigmoid colon and in the ascending colon. - Two 6 to 7 mm polyps at the splenic flexure,removed with a cold snare. Complete resection. Polyp tissue not retrieved. - The examination was otherwise normal on directand retroflexion views. - The entire examined colon is normal. Biopsied. Recommendation: - Await pathology results. - Repeat colonoscopy in 3 years for surveillance. Collin Balderrama MD GI~PROCEDURE ORDERABLES Fin al Result * Diabetes Eye Exam (09/28/2023) Diabetes: Annual Retina Eye Exam Abstracted Historical Provider HEALTH MAINTENANCE Final Result * Hepatitis C Screening (05/27/2020) Hepatitis C Screening Abstracted Historical Provider HEALTH MAINTENANCE Final Result from Last 3 Months or Most Recently Relevant to Health Maintenance Insurance [employer] MED[employer] Member Subscriber Plan / Payer (Ef fective 2023-Present) Name:GINGER FLYNN Relation to Subscriber:Self Name:Ginger Flynn Payer ID:[id number] Group ID:[id number] Type:Not on file Address: [address] [facility] [place] [phone] Care Teams Tracer Bullet Section Supervisor Relationship Specialty Start Date End Date Lucho Eric MD [address] [place] [id number] PCP - General Internal Medicine 02/23/18
--- OUTSIDE RECORDS SUMMARY | 2024-10-04 15:25 | XMS_ITS | Clinical Summary ---
Author Organization [facility] Address [address] [place] [address] Care Team Providers Care Stock Preparer Name Role Phone Unavailable Primary Care Provider Unavailabl e Source Comments PLEASE NOTE, if this patient is a minor, it may be UNLAWFUL to discuss sensitive information that is contained in these records (such as FAMILY PLANNING, MENTAL HEALTH or SUBSTANCE ABUSE) with the minor patient's parent or other person without the patient's specific authorization.[facility] Allergies No known active allergies Medications caneIndications:C hronic pain syndrome,Multilev el degenerative disc disease,Sacral radiculopathy Dx:M53.9, M54.18,G89.4. For assistance with ambulation. Indefinite need 1 Each 0 12/05/19 15 Active braceIndications: Chronic pain syndrome,Multilev el degenerative disc disease,Sacral radiculopathy Dx:M53.9, M54.18,G89.4. For assistance with ambulation. Indefinite need 1 Each 0 12/05/19 15 Active clonazePAM (KLONOPIN) 1 mg tabletIndications :Anxiety Take 1 Tab by mouth every evening. 30 Tab 1 09/15/19 16 Active dextrose (DEX4 GLUCOSE) 40 % oral gelIndications:In sulin dependent type 2 diabetes mellitus, uncontrolled Take 15 g by mouth as needed (blood sugars below 70 mg/dL) 100 Tube 5 05/01/19 17 Active Insulin Serafina, Disposable, (VINICIO PEN NEEDLE) 32 gauge x ndleIndications:U ncontrolled type 2 diabetes mellitus without complication, with long-term current use of insulin 1 Each by miscellaneous route 5 (five) times daily 200 Each 5 05/01/19 17 Active alcohol swabsIndications: Uncontrolled type 2 diabetes mellitus without complication, with long-term current use of insulin Dx: E11.65 DM2 , for insulin injections 5 times 400 Each 05/01/19 17 Active insulin aspart (NOVOLOG FLEXPEN) 100 unit/mL injectionIndicati ons:Insulin dependent type 2 diabetes mellitus, uncontrolled Inject SQ w/ Meals TID 5-35 units up to 105 units daily 40 mL 05/01/19 17 Active insulin degludec (TRESIBA FLEXTOUCH U-200) 200 unit/mL (3 mL) inpnIndications:I nsulin dependent type 2 diabetes mellitus, uncontrolled Inject 60 Units into the skin every morning 60 units at bedtime 20 mL 05/01/19 17 Active blood-glucose meter kit (FREESTYLE FREEDOM LITE) monitoring kit as needed for blood glucose monitoring 1 Each 0 05/02/19 17 Active meloxicam (MOBIC) 15 mg tabletIndications :Chronic pain syndrome Take 1 Tab by mouth once daily 90 Tab 5 07/09/19 17 Active omeprazole (PRILOSEC) [address] capsuleIndication s:Gastroesophagea l reflux disease without esophagitis Take 1 Cap by mouth 2 (two) times daily Do not crush or chew. 180 Cap 2 07/09/19 17 Active citalopram (CELEXA) 20 mg tabletIndications :Bipolar 1 disorder ([facility]) Take 1 Tab by mouth once daily Prescribed by: Estefanía Bal- Psych 30 Tab 07/09/19 [address] tablet Take 1 Tab by mouth once daily 90 Tab 3 07/09/19 17 Active lamoTRIgine (LAMICTAL) 25 mg tabletIndications :Major depressive disorder, recurrent, in partial remission ([facility] V24) Take 1 Tab by mouth 2 (two) times daily 120 Tab 07/09/19 17 Active atorvastatin (LIPITOR) 40 mg tabletIndications :Hyperlipidemia LDL goal <100 Take 1 Tab by mouth once daily 90 Tab 3 07/09/19 17 Active sildenafil (VIAGRA) 100 mg tabletIndications :Erectile dysfunction associated with type 2 diabetes mellitus ([facility]) Take 1 Tab by mouth once daily as needed for erectile dysfunction 10 Tab 5 07/09/19 17 Active liraglutide (VICTOZA) 0.6 mg/0.1 mL (18 mg/3 mL) injection penIndications:In sulin dependent type 2 diabetes mellitus, uncontrolled Inject 0.6 mg into the skin once daily 1 Pen 12/04/19 17 Active blood sugar diagnostic (FREESTYLE INSULINX TEST STRIPS) stripsIndications :Uncontrolled type 2 diabetes mellitus without complication, with long-term current use of insulin 1 Strip 3 (three) times daily with meals DX:E11.65 100 Each 03/24/19 18 Active FREESTYLE LANCETS 28 gaugeIndications: Uncontrolled type 2 diabetes mellitus without complication, with long-term current use of insulin USE THREE TIMES DAILY WITH MEALS 100 Each 10/08/19 18 Active Active Problems Problem Noted Date Diagnosed Date Adhesive capsulitis of left shoulder 04/30/2016 Overview (05/06/2016): [facility] ED 04/14/16 for L shoulder pain, xray negative. 04/22/16 Maritza PYLE, TRAINING AND DEVELOPMENT SPECIALIST. Cortisone injection not given d/t uncontrolled BS. Advised f/u 1 week to see if BS more controlled then will give injection. Advised PT. Left sided chest pain 04/14/2015 Overview (04/14/2015): CXR at [facility] negative for fracture, 04/03/15 Erectile dysfunction associa demarco with type 2 diabetes mellitus ([facility]) 11/01/2014 Hyperlipidemia LDL goal <100 05/30/2014 Sleep apnea 05/30/2014 Sacral radiculopathy 05/23/2014 Overview (05/23/2014): My[place]ogram done in [place] 01/18/12 Major depressive disorder, r ecurrent, in partial remission ([facility] V24) Insulin dependent type 2 diabetes mellitus, unco ntrolled Esophageal hernia GERD (gastroesophageal reflux disease) Colon polyp Overview (04/06/2017): GI [facility] 03/22/17 EGD: Normal - with mild active inflammation without intestinal metaplasia. Colon, hepatic flexure with tubular adenoma. Bipolar 1 disorder ([facility]) Herniated disc Overview (05/23/2014): L5-S1 Right paracentral disc herniation MRI Lumbar spine 12/07/11 In [place] C3-C4 and C4-C5 disc protrusion 12/07/11 Chronic pain Multilevel degenerative disc disease Overview (05/23/2014): MRI Lumbar and cervical spine 12/07/11 in [place] Diffuse Chronic DJD and early DDD changes Immunizations Immunization Administration Dates Next Due INFLUENZA, SEASONAL, INJECTABLE 12/04/2014 PFIZER COVID VACCINE, PURPLE CAP, 12+ 01/21/2021 Social History Tobacco Use Types Packs/Day Years Used Date Smoking Tobacco: Never Smokeless Tobacco: Never Alcohol Use Standard Drinks/Week Comments No 0 (1 standard drink = 0.6 oz pur e alcohol) Social Connections Answer Date Recorded Social Connections and Isolation 0 10/15/2018 Financial Resource Strain Answer Date R ecorded Financial Resource Strain 0 2018 Stress Answer Date Recorded Stress 0 10/15/2018 Physical Activity Answer Date Recorded Physical Activity 0 10/15/2018 Food Insecurity Answer Date Recorded Food 0 10/15/2018 Transportation Needs Answer Date Record ed Transportation 0 10/15/2018 Housing Stability Answer Date Recorded Housing 0 10/15/2018 Safety and Environment Answer Date Kervin rded Safety 0 10/15/2018 Utilities Answer Date Recorded Utilities 0 10/15/2018 Employment Answer Date Recorded Employment 0 10/15/2018 Sex and Gender Information Value Date Recorded Sex Assigned at Male 2016 6:41 AM PDT Legal Sex Male 10:42 AM PDT Gender Identity Male 2016 6:41 AM PDT Sexual Orientation Straight 2016 6: 41 AM PDT Last Filed Vital Signs Vital Sign Reading Time Taken Comments Blood Pressure 102/60 04/07/2017 9:01 AM EST Pulse 76 04/07/2017 9:01 AM EST Temperature 34.4 C (94 F) 01/20/2017 9:43 AM EST Respiratory Rate 16 04/07/2017 9:01 AM EST Oxygen Saturation 97% 01/20/2017 9:43 AM EST Inhaled Oxygen Concentration - - Weight 79.4 kg (175 lb) 04/07/2017 9:01 AM EST Height 165.1 cm (5' 5 ) 07/08/2016 9:00 AM EDT Body Mass Index 29.12 07/08/2016 9:00 AM EDT Plan of Treatment Health Maintenance Due Date Last Done Comments Hepatitis C Screening 1950 Tobacco Screening 1950 Medicare Annual Wellness Visit 1970 Imm-DTaP/Tdap/Td (1 - Tdap) 12/04/1971 CT Colonography 1997 Colonoscopy 1997 Fecal DNA 1997 Flexible Sigmoidoscopy 1997 Imm-Pneumococcal 50+ (1 of 1 - PCV) 2002 Imm-Zoster, Recombinant (1 of 2) 2002 Lipid Screening 08/18/2017 08/18/2016, 02/21, 05/23/2014 Falls Prevention 2017 Hypertension Screening (#1) 04/07/2018 Colorectal Cancer Screening 03/25/2022 FIT/gFOBT 03/25/2022 03/25/2017, 07/14/2015 [id number] ( season) 2023 01/21/2021, 05/21/2020, 04/30/2020 Alcohol and Drug Screen 02/22/2024 05/15/2015 Depression Annual Screen 02/22/2024 05/15/2015 Imm-Influenza (#1) 2024 12/04/2014 Procedures Procedure Name Priority Date/Time Associated Diagnosis Comments LIPID PANEL Routine 08/18/2016 10:34 AM EDT Insulin dependent type 2 diabetes mellitus, uncontrolled (HCC) Hyperlipidemia LDL goal <100 from Last 3 Months or Most Recently Relevant to Health Maintenance Results * (ABNORMAL) LIPID PANEL (08/18/2016 10:34 AM EDT) CHOLESTEROL 272(H) 0 - 200 mg/dL [facility] TRIGLYCERIDES 218(H) 0 - 150 mg/dL [facility] HDL CHOLESTEROL 43 >40 mg/dL [facility] LDL CALCULATED 186(H) 0 - 100 mg/dL [facility] TC-HDLC RATIO 6.3(H) 0 - 4.4 mg/dL [facility] Blood specimen (specimen) Blood / Unknown 08/18/2016 10:34 AM EDT 08/18/2016 10:37 AM EDT Narrative [facility] - 08/18/2016 12:46 PM EDT [facility] [address] [place] [address] PT ID [id number] ORD# [id number] [facility] - BLOOD DRAW Edited Result - Final [facility] [address] [place] [address], from Last 3 Months or Most Recently Relevant to Health Maintenance Insurance [place] MEDICAID DENTAL [facility] DENTAL
== END 2024-10-04 15:12 | disposition home or self-care (01) ==
LOC: HO.HSM 14:47
PROVIDERS: PCP Internal Medicine; Referring Provider Internal Medicine; Visit Provider Registered Nurse
DX: G43.909 Migraine, unspecified, not intractable, without status migrainosus (principal); G62.9 Polyneuropathy, unspecified; R26.89 Other abnormalities of gait and mobility; M15.9 Polyosteoarthritis, unspecified
CPT/HCPCS: 99214

== ENCOUNTER → 2024-10-04 14:46 | Outpatient (BNVA) | payer OTHER, SELFPAY | PROVIDERS: PCP Internal Medicine; Referring Provider Internal Medicine; Visit Provider Registered Nurse | DX: G47.33 Obstructive sleep apnea (adult) (pediatric) (principal); G43.909 Migraine, unspecified, not intractable, without status migrainosus; G62.9 Polyneuropathy, unspecified; R26.89 Other abnormalities of gait and mobility; M15.9 Polyosteoarthritis, unspecified | CPT/HCPCS: 99212 ==

== ENCOUNTER 2025-01-01 14:25 | Outpatient (AMB) | payer OTHER, SELFPAY ==
--- NOTE | 2025-01-01 14:27 | A.OFFVIS_ITS ---
Intake Visit Reasons: JEVON PN Radiology Interventional Physician Required: Yes Radiology Interventional Physician Name: #[id number] Allergies No Known Allergies Allergy (Verified 01/01/25 14:29) Medication List - Last Reconciled 01/01/25 by Heena Souza CNP buspirone 10 mg PO BID gzmtewdkdy-srexugbjzxiky-nzpz 50-325-40 mg 1 - 2 tabs PO DAILY PRN 30 days cetirizine 10 mg PO DAILY clonazepam 0.5 mg PO DAILY PRN dulaglutide mg subcut empagliflozin (Jardiance) 25 mg PO DAILY esomeprazole magnesium 40 mg PO DAILY gabapentin 300 mg PO BEDTIME 30 days insulin aspart U-100 15 units subcut TID insulin degludec 50 units subcut BEDTIME lidocaine 4% 1 patch topical DAILY PRN 30 days lisinopril 2.5 mg PO DAILY melatonin 9 mg PO BEDTIME meloxicam 15 mg PO DAILY PRN 3 months mirtazapine 30 mg PO BEDTIME prazosin 1 mg PO BEDTIME rosuvastatin 20 mg PO DAILY sertraline 50 mg PO DAILY HPI Comments Details: 73-year-old man with remote h/o heavy alcohol use, underlying diagnosis of bipolar disorder, CAD s/p CABG, and diabetes who was here with complaints of headache and unsteadiness. Evaluation revealed cerebellar atrophy and moderately severe axonal SM PN. He was complaining of arthritis-type pains all over body, including knees, back, shoulders, and hands. He was using lidocaine patches which helped some, but was asking if pain medication such as Tramadol could be prescribed. He was taking gabapentin at bedtime which helped with burning-type pain in legs. He was walking with cane, no falls. Headaches were infrequent, happening about once a month. Butalbital as needed helped. Sleep was okay with medications, using CPAP. [facility] Medical History (Updated 10/04/24 @ 15:06 by Heena Souza CNP) Multifactorial gait disorder Peripheral neuropathy Migraine Hypertension Surgical History History of circumcision History of vasectomy Family History Father No problems noted. Mother Diabetes Hypertension CVD (cardiovascular disease) Brother Diabetes Maternal Aunt Stomach cancer Review of Systems Const Denies chills, Denies daytime sleepiness, Denies difficulty sleeping, Denies fatigue, Denies fever(s), Denies frequent falls, Reports headache(s), Denies increased appetite, Denies poor appetite, Denies snoring, Denies weakness, Denies weight gain and Denies weight loss Eyes Denies loss of vision ENT Denies vertigo, Denies dizziness and Reports headache(s) Card Denies chest pain at rest, Denies chest pain with activity, Denies syncope, D enies leg edema and Denies palpitations Resp Denies snoring GI Denies constipation, Denies heartburn, Denies diarrhea and Denies nausea Denies urinary frequency, Denies urinary incontinence and Denies urinary urgency Musc Denies abnormal gait, Reports numbness and Reports tingling Skin/Breast Denies dry skin and Denies rash Neuro Denies abnormal gait, Denies vertigo, Denies dizziness, Denies syncope, Denies frequent falls, Reports headache(s), Denies lack of coordination, Denies loss of vision, Denies memory loss, Reports numbness, Denies restless legs, Denies seizure-like activity, Reports tingling, Denies paresthesias, Denies tremor(s) a nd Denies weakness Psych Denies anxiety, Denies depression, Denies auditory hallucinations, Denies memory loss, Denies visual hallucinations and Denies suicidal ideation Endo Denies fatigue and Denies palpitations Physical Exam Const Other: General Appearance:? normal, in no acute distress. Skin:? no rashes, no significant birthmarks. Heart:? S1, S2 normal, no murmurs. Lungs:? clear anteriorly and posteriorly. Extremities:? no edema. Psych:? alert, oriented, cognitive function intact, cooperative with exam. Neuro Other: Mental Status:?Normal attention, orientation, memory and affect.? Cranial Nerves:?Pupils are equal, round and reactive to light. External occular muscles are intact. Visual ace are full. Face is symmetrical. Facial sensations are normal. Tongue is midline. Palate elevates symmetrically. Shoulder shrugging is normal. Hearing to bedside conversation is normal. Motor Examination: DTRs 2-3 with flexor plantars. Sensory Exam:?....? Coordination:?No ataxia,?no titubation.? Gait Exam: With cane. Cerebellar Signs:?Gdwehp-jq-qreg with mild b/l tremor. Extrapyramidal System:?No tremor, rigidity with normal facial expressions.? Pronator Drift:?Not present.? Involuntary Movements:?No tremors seen.? Speech:?Normal.? Results Reviewed Results Reviewed: NCV/EMG (in office) Moderately severe motor more than sensory peripheral neuropathy with features of demyelination and axonal loss. 01/03/24. CT brain WO at [facility] in 2021: Mild cerebellar and cerebral atrophy Assessment & Plan Assessment & Plan (1) Migraine: Code(s): G43.909 - Migraine, unspecified, not intractable, without status migrainosus Category: Medical Qualifiers: Migraine type: unspecified Status migrainosus presence: without status migrainosus Intractability: not intractable Qualified Code(s): G43.909 - Migraine, unspecified, not intractable, without status migrainosus Plan: Continue vnhysnojsz-KLFR-pyme 50-325-40mg 1-2 tablets as needed for headache #10 for 30 days. (2) Peripheral neuropathy: Code(s): G62.9 - Polyneuropathy, unspecified Category: Medical Qualifiers: Peripheral neuropathy type: polyneuropathy, unspecified Qualified Code(s): G62.9 - Polyneuropathy, unspecified Plan: Continue gabapentin 300mg 1 tablet at bedtime. (3) Multifactorial gait disorder: Code(s): R26.89 - Other abnormalities of gait and mobility Category: Medical Plan: Use cane at all times. (4) Osteoarthritis: Code(s): M19.90 - Unspecified osteoarthritis, unspecified site Category: Medical Qualifiers: Osteoarthritis location: multiple joints Osteoarthritis type: unspecified Qualified Code(s): M15.9 - Polyosteoarthritis, unspecified Plan: Continue lidocaine 4% patches 1 patch to affected area daily #30 for 30 days. Labs ordered r/o inflammatory type conditions He was advised tramadol would not prescribed for this and to follow up with PCP for ongoing management. Orders: Orders Erythrocyte Sedimentation Rate Today G89.29 - Other chronic pain C Reactive Protein Today G89.29 - Other chronic pain Medications: Refilled lidocaine 4% 1 patch topical DAILY PRN 30 ea 2RF pain 30 days gabapentin 300 mg PO BEDTIME 30 caps 5RF 30 days Coding Level of Care Code Est Pt Level 4 (26339) Diagnoses Migraine without status migrainosus, not intractable, unspecified migraine type G43.909 Migraine type: unspecified Status migrainosus presence: without status migrainosus Intractability: not intractable Peripheral polyneuropathy G62.9 Peripheral neuropathy type: polyneuropathy, unspecified Multifactorial gait disorder R26.89 Osteoarthritis of multiple joints, unspecified osteoarthritis type M15.9 Osteoarthritis location: multiple joints Osteoarthritis type: unspecified
--- OUTSIDE RECORDS SUMMARY | 2025-01-01 16:09 | XMS_ITS | Clinical Summary ---
Author Organization [facility] Address [address] [address] [place] [address] Care Team Providers Care Dressmaker Or Tailor Name Role Phone Unavailable Primary Care Provider [...] 100 Tube 5 05/01/19 17 Active Insulin [place], Disposable, (VINICIO PEN NEEDLE) 32 gauge x [...] up to 105 units daily 40 mL 5 05/01/19 17 Active insulin degludec (TRESIBA FLEXTOUCH [...] (CELEXA) 20 mg tabletIndications :Bipolar 1 disorder Take 1 Tab by mouth once daily Prescribed by: Estefanía Bal- Psych 30 Tab 07/09/19 17 Active [address] tablet Take 1 Tab by mouth once daily 90 Tab 3 07/09/19 17 Active lamoTRIgine (LAMICTAL) 25 mg tabletIndications :Major depressive disorder, recurrent, in partial remission Take 1 Tab by mouth 2 (two) times daily 120 Tab 07/09/19 17 Active atorvastatin (LIPITOR) 40 mg tabletIndications :Hyperlipidemia LDL goal <100 Take 1 Tab by mouth once daily 90 Tab 3 07/09/19 17 Active sildenafil (VIAGRA) 100 mg tabletIndications :Erectile dysfunction associated with type 2 diabetes mellitus Take 1 Tab by mouth once daily as needed for erectile dysfunction 10 Tab 5 07/09/19 17 Active liraglutide (VICTOZA) 0.6 mg/0.1 mL (18 mg/3 mL) injection penIndications:In sulin dependent type 2 diabetes mellitus, uncontrolled Inject 0.6 mg into the skin once daily 1 Pen 12/04/19 Active blood sugar diagnostic (FREESTYLE INSULINX TEST STRIPS) stripsIndications :Uncontrolled type 2 diabetes mellitus without complication, with long-term current use of insulin 1 Strip 3 (three) times daily with meals DX:E11.65 100 Each 03/24/19 Active FREESTYLE LANCETS 28 gaugeIndications: Uncontrolled type 2 diabetes mellitus without complication, with long-term current use of insulin USE THREE TIMES DAILY WITH MEALS 100 Each 10/08/19 Active Active Problems Problem Noted Date Diagnosed Date Adhesive capsulitis of left shoulder 04/30/2016 Overview (05/06/2016): [facility] 04/14/16 for L shoulder pain, xray negative. 04/22/16 LASHANDA, Maritza Vidal, CONTACT LENS BLOCKER. Cortisone injection not given d/t uncontrolled BS. Advised f/u 1 week to see if BS more controlled then will give injection. Advised PT. Left sided chest pain 04/14/2015 Overview (04/14/2015): [place] [facility] [place], 04/03/15 Erectile dysfunction associa demarco with type 2 diabetes mellitus 11/01/2014 Hyperlipidemia LDL goal <100 05/30/2014 Sleep apnea 05/30/2014 Sacral radiculopathy 05/23/2014 Overview (05/23/2014): Myelogram done in [place] 01/18/12 Major depressive disorder, recurrent, in partial remission Insulin dependent type 2 diabetes mellitus, unco ntrolled Esophageal hernia GERD (gastroesophageal reflux disease) Colon polyp Overview (04/06/2017): GI [facility] 03/22/17 EGD: Normal - with mild active inflammation without intestinal metaplasia. Colon, hepatic flexure with tubular adenoma. Bipolar 1 disorder Herniated disc Overview (05/23/2014): L5-S1 Right paracentral disc herniation MRI Lumbar spine 12/07/11 In [place] C3-C4 and C4-C5 disc protrusion 12/07/11 Chronic pain Multilevel degenerative disc disease Overview (05/23/2014): MRI Lumbar and cervical spine 12/07/11 in [place] Diffuse Chronic DJD and early DDD changes [...] Cancer Screening 03/25/2022 FIT/gFOBT 03/25/2022 03/25/2017, 07/14/2015 Alcohol and Drug Screen 02/22/2024 05/15/2015 Depression Annual Screen 02/22/2024 05/15/2015 [id number] ( season) 2024 01/21/2021, 05/21/2020, 04/30/2020 Imm-Influenza (#1) 2024 12/04/2014 Procedures Procedure Name Priority Date/Time Associated Diagnosis Comments LIPID PANEL Routine 08/18/2016 10:34 AM EDT Insulin dependent type 2 diabetes mellitus, uncontrolled (HCC) Hyperlipidemia LDL goal <100 from Last 3 Months or Most Recently Relevant to Health Maintenance Results * (ABNORMAL) LIPID PANEL (08/18/2016 10:34 AM EDT) CHOLESTEROL 272(H) 0 - 200 mg/dL [facility] TRIGLYCERIDES 218(H) 0 - 150 mg/dL [facility] HDL CHOLESTEROL 43 >40 mg/dL [facility] LDL CALCULATED 186(H) 0 - 100 mg/dL [facility] TC-HDLC RATIO 6.3(H) 0 - 4.4 mg/dL [facility] Blood specimen (specimen) Blood / Unknown 08/18/2016 10:34 AM EDT 08/18/2016 10:37 AM EDT Narrative [facility] - 08/18/2016 12:46 PM EDT [employer] [address] [place] [address] PT ID [id number] ORD# [id number] [facility] - BLOOD DRAW Edited Result - Final [facility] [address] [place] [address], from Last 3 Months or Most Recently Relevant to Health Maintenance Insurance [place] MEDICA[place] DENTAL [facility] NET DENTAL [facility]
== END 2025-01-01 14:55 | disposition home or self-care (01) ==
LOC: HO.HSM 14:26
PROVIDERS: PCP Internal Medicine; Visit Provider Registered Nurse
DX: G43.909 Migraine, unspecified, not intractable, without status migrainosus (principal); G62.9 Polyneuropathy, unspecified; R26.89 Other abnormalities of gait and mobility; M15.9 Polyosteoarthritis, unspecified
CPT/HCPCS: 99214

== ENCOUNTER → 2025-01-01 14:25 | Outpatient (BNVA) | payer OTHER, SELFPAY | PROVIDERS: PCP Internal Medicine; Visit Provider Registered Nurse | DX: G43.909 Migraine, unspecified, not intractable, without status migrainosus (principal); G62.9 Polyneuropathy, unspecified; R26.89 Other abnormalities of gait and mobility; M15.9 Polyosteoarthritis, unspecified | CPT/HCPCS: 99212 ==